=== PATIENT | male | born 1990 | race American Indian/Alaskan Native ===

== ENCOUNTER 2020-04-18 01:30 | Emergency (ER) | payer OTHER ==
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
[2020-04-18] MEDS ORDERED: DIPHtheria,PERTUSSIS(ACELL),TETANUS VACCINE/PF 0.5 ML VIAL IM ONE (04:50)
[2020-04-18] MEDS ORDERED: ACETAMINOPHEN 500 MG TAB PO ONE (04:51)
[2020-04-18 06:23] VITALS: BP 124/72
== END 2020-04-18 05:57 | disposition home or self-care (01) ==
LOC: ED 01:30
DX: S02.2XXA Fracture of nasal bones, initial encounter for closed fracture (principal); S01.81XA Laceration without foreign body of other part of head, initial encounter; Z79.899 Other long term (current) drug therapy; Z88.2 Allergy status to sulfonamides; V49.59XA Passenger injured in collision with other motor vehicles in traffic accident, initial encounter; Y92.410 Unspecified street and highway as the place of occurrence of the external cause; Y93.89 Activity, other specified; Y99.8 Other external cause status
CPT/HCPCS: 70450; 70486; 90715